=== PATIENT | male | born 1980 | race Two or more races ===

== ENCOUNTER 2017-08-01 17:30 | Emergency (ER) | payer OTHER ==
[2017-08-01 17:31] VITALS: BP 109/72
--- NOTE | 2017-08-01 18:57 | PHYS DOC ---
Past History Past Medical History: Other Past Surgical History: No Surgical History Alcohol Use: None Drug Use: None Social History Narrative: history of alcoholism and pill usage Adult General Chief Complaint Chief Complaint: LACERATION/AVULSION HPI HPI Patient is a 37 year old male who presents with complaint of left lip injury. Patient states that this took place approximately 3 hours prior to arrival. Patient was playing basketball when he was struck in the lip by a knee of another player. The patient initially cleaned up the wound but realized later that it was gaping open and thus came to the emergency department for evaluation. Patient denies any loss of consciousness or other injury. Patient is up-to-date on tetanus. Review of Systems Review of Systems Constitutional: Denies fever or chills [] Eyes: Denies change in visual acuity, redness, or eye pain [] HENT: Lip laceration, denies nasal congestion or sore throat [] Respiratory: Denies cough or shortness of breath [] Cardiovascular: Denies chest pain or edema[] GI: Denies abdominal pain, nausea, vomiting, bloody stools or diarrhea [] : Denies dysuria or hematuria [] Musculoskeletal: Denies back pain or joint pain [] Integument: Denies rash or skin lesions [] Neurologic: Denies headache, focal weakness or sensory changes [] All other systems were reviewed and found to be within normal limits, except as documented in this note. Allergies Allergies No known drug allergies Physical Exam Physical Exam Constitutional: Well developed, well nourished, no acute distress, non-toxic appearance. [] HENT: Normocephalic, 2-1/2 cm lip laceration along left lower lip Vermilion border that appears through and through into the inner mucosa, bilateral external ears normal, oropharynx moist, no oral exudates, nose normal. [] Eyes: PERRLA, EOMI, conjunctiva normal, no discharge. [] Neck: Normal range of motion, no tenderness, supple, no stridor. [] Cardiovascular:Heart rate regular rhythm, no murmur [] Lungs & Thorax: Bilateral breath sounds clear to auscultation [] Abdomen: Bowel sounds normal, soft, no tenderness, no masses, no pulsatile masses. [] Skin: Warm, dry, no erythema, no rash. [] Back: No tenderness, no CVA tenderness. [] Extremities: No tenderness, no cyanosis, no clubbing, ROM intact, no edema. [] Neurologic: Alert and oriented X 3, normal motor function, normal sensory function, no focal deficits noted. [] Current Patient Data Vital Signs Vital Signs Date Time Temp Pulse Resp B/P (MAP) Pulse Ox O2 Delivery O2 Flow Rate FiO2 08/01/17 17:31 98.6 70 16 99 Room Air Lab Results None performed EKG EKG Not performed[] Radiology/Procedures Radiology/Procedures Indication: Lip laceration Procedure: The patient was placed in the appropriate position and anesthesia around the laceration was achieved with injection of lidocaine 2%. The area was then cleansed with clean gauze and prepped with Betadine. The laceration was closed using 5-0 Ethilon simple interrupted sutures. A total of 4 sutures were placed in the wound. Total repaired wound length: 2.5 cm. Other Items: Total suture count: 4 The patient tolerated the procedure without difficulty. Complications: None.[] Course & Med Decision Making Course & Med Decision Making Pertinent Labs and Imaging studies reviewed. (See chart for details) Lip laceration was repaired as outlined in the procedure note. Advised follow- up in 5-7 days for removal of sutures. Advised return to emergency department for any worsening symptoms. Patient was understanding and in agreement with treatment plan. Dragon Disclaimer Dragon Disclaimer This electronic medical record was generated, in whole or in part, using a voice recognition dictation system. Departure Departure: Impression: Primary Impression: Lip laceration Disposition: 01 HOME, SELF-CARE Condition: IMPROVED Patient Instructions: Facial Laceration Additional Instructions: Follow-up with her primary doctor in 5-7 days for removal of sutures. Return to the emergency department for any worsening symptoms. Problem Qualifiers Primary Impression: Lip laceration Encounter type: initial encounter Qualified Codes: S01.511A - Laceration without foreign body of lip, initial encounter ABBY GARCIA MD Aug 01, 2017 18:57
== END 2017-08-01 19:00 | disposition home or self-care (01) ==
LOC: ER 17:30
DX: S01.511A Laceration without foreign body of lip, initial encounter (principal); W50.0XXA Accidental hit or strike by another person, initial encounter; Y93.67 Activity, basketball; Y92.89 Other specified places as the place of occurrence of the external cause; Y99.8 Other external cause status
CPT/HCPCS: 40650; 99284-25